=== PATIENT | female | born 1945 | race Caucasian/White ===

== ENCOUNTER 2017-09-27 17:00 | Observation (INO) ==
[2017-09-27] MEDS ORDERED: ASPIRIN 325 MG TABLET PO STA (17:39)
[2017-09-27] MEDS ORDERED: MORPHINE 2 MG/1 ML SYRINGE IV STA ×2 (17:39→20:31)
[2017-09-27] MEDS ORDERED: NITROGLYCERIN 2% OINT 1 INCH/GM PACK TOP STA (17:39)
[2017-09-27] MEDS ORDERED: ONDANSETRON 4 MG/2 ML VIAL IV STA (17:39)
[2017-09-27] MEDS ORDERED: ONDANSETRON 4 MG/2 ML VIAL ONE (17:43)
[2017-09-27] MEDS ORDERED: NITROGLYCERIN 2% OINT 1 INCH/GM PACK TOP ONE (17:43)
[2017-09-27] MEDS ORDERED: MORPHINE 2 MG/1 ML SYRINGE ONE ×2 (17:44→20:31)
[2017-09-27] MEDS ORDERED: ASPIRIN 325 MG TABLET ONE (17:44)
[2017-09-27 17:53] LABS: Apearance,Urine CLEAR (Clear); Bacteria,Urine Occasional /HPF (Few); Bilirubin,Urine Negative (Negative); Blood, Urine Negative (Negative); Glucose,Urine (UA) 50 mg/dL (Negative); Ketones,Urine Negative (Negative); Mucus,Urine Occasional /LPF (Occasional); Nitrite,Urine Negative (Negative); Protein,Urine 30 MG/DL; RBC,Urine <1 /HPF (0-4); Squamous Epithelial Cell,Urine Occasional /HPF (0-10); Urine Color Straw (Yellow); Urine Urobilinogen < 2.0 EU/DL (0.2-1.0); WBC,Urine 14 /HPF (0-6)
[2017-09-27 17:55] LABS: Basophils # 0.1 10*3/uL (0.0-0.2); Basophils % 0.6 % (0.0-0.8); Eosinophils # 0.4 10*3/uL (0.0-0.87); Eosinophils % 4.2 % (0.00-10.9); Hematocrit 38.6 VOL% (35.7-47.0); Hemoglobin 12.6 GM/DL (12.0-16.0); Immature Granulocytes % 0.2 %; Immature Granulocytes Absolute 0.02 #; Lymphocytes # 1.4 10*3/uL (1.4-4.0); Mean Corpuscular HGB Conc 32.6 GM/DL (32-36); Mean Corpuscular Hemoglobin 27 PG (27-34); Mean Corpuscular Volume 83.9 FL (87-102); Mean Platelet Volume 11.6 FL (9.6-12.0); Monocytes # 0.5 10*3/uL (0.11-0.8); Monocytes % 5.9 % (1.7-12.7); Neutrophils # 5.9 10*3/uL (1.4-7.4); Neutrophils % 72.1 % (38.7-73.9); Platelet Count 220 T/CUMM (130-400); White Blood Count 8.3 T/CUMM (4-12)
[2017-09-27 18:08] LABS: PT Patient Result 10.9 SECS
[2017-09-27 18:09] LABS: Alanine Aminotransferase 16 U/L (13-56); Albumin 3.4 G/DL (3.4-5.0); Alkaline Phosphatase 131 U/L (45-117); Aspartate Amino Transferase 13 U/L (0-37); Bilirubin,Total < 0.39 MG/DL (0.2-1.0); Blood Urea Nitrogen 34 MG/DL (7-18); Glucose 210 MG/DL (74-106); Osmolality,Calculated 290.5 MOS/KG (273-304); Potassium 4.2 MMOL/L (3.5-5.1); Sodium 139 MMOL/L (136-145); Total Protein 7.5 G/DL (6.4-8.3)
[2017-09-27] MEDS ORDERED: cefTRIAXone 1,000 MG in SODIUM CHLORIDE 0.9% 100 ML IV STA (19:26)
[2017-09-27] MEDS ORDERED: cefTRIAXone 1,000 MG VIAL ONE (19:45)
[2017-09-27] MEDS ORDERED: ONDANSETRON 4 MG/2 ML VIAL IV PRN (21:17)
[2017-09-27] MEDS ORDERED: INSULIN REGULAR 100 UNIT/ML SUBCUT ONE (21:17)
[2017-09-27] MEDS ORDERED: RIVAROXABAN 15 MG TABLET PO SCH (21:30)
[2017-09-28] MEDS: NITROGLYCERIN 2% OINT 1 INCH/GM PACK TOP SCH ×3 (00:18→12:57)
[2017-09-28] MEDS: MORPHINE ER 30 MG TABLET PO SCH ×2 (01:31→08:52)
[2017-09-28 05:46] LABS: Risk Ratio 3.67
[2017-09-28] MEDS ORDERED: ASPIRIN EC 325 MG TABLET PO SCH (09:00)
[2017-09-28] MEDS ORDERED: METOPROLOL TARTRATE 50 MG TABLET PO SCH (09:00)
[2017-09-28] MEDS ORDERED: PANTOPRAZOLE 40 MG TABLET PO SCH (09:00)
[2017-09-28] MEDS ORDERED: SERTRALINE 100 MG TABLET PO SCH (09:00)
[2017-09-28] MEDS ORDERED: GLUCAGON 1 MG VIAL IM PRN (10:52)
[2017-09-28] MEDS ORDERED: DEXTROSE 50% 25 GM/50 ML VIAL IV PRN (10:52)
[2017-09-28 12:03] VITALS: BP 130/66
[2017-09-28] MEDS ORDERED: PRAVASTATIN 40 MG TABLET PO SCH (21:00)
== END 2017-09-28 14:49 | disposition home or self-care (01) ==
LOC: N.EDINP 17:00 → N.ED 17:00 → N.TELEN 22:10
PROVIDERS: ADMIT Hospitalist; ATTEND Hospitalist